=== PATIENT | male | born 1955 | race Caucasian/White ===

== ENCOUNTER → 2024-05-22 | Outpatient (CLI) | payer MEDICARE, BC ==
[~2024-05-22] MED LIST: ACET1TAB15 PO; CORITAB PO; METO-1 PO; OMEP20CA3 PO; SOMA250T PO; TRAM37.5 PO; [UNRECOGNIZED DRUG - OTHER] PO; norvasc PO
== END ==
LOC: M PLARAD 08:52
PROVIDERS: ATTEND Psychiatry & Neurology Neurology
DX: I63.09 Cerebral infarction due to thrombosis of other precerebral artery (principal); R29.6 Repeated falls; R26.81 Unsteadiness on feet

== ENCOUNTER → 2024-12-11 | Outpatient (REF) | LOC: M CFLAB 14:39 | DX: N39.0 Urinary tract infection, site not specified (principal) ==